=== PATIENT | male | born 1990 | race Caucasian/White ===

== ENCOUNTER 2016-10-03 21:17 | Emergency (ER) | payer OTHER ==
[2016-10-03] MEDS ORDERED: TETRACAINE HCL 0.5% 4 ML BTTL OPHTH ONE (21:30)
[2016-10-03] MEDS ORDERED: GENTAMICIN OPTH SOL 0.3% 5ML BOTTLE OPHTH ONE (21:30)
--- NOTE | 2016-10-03 22:02 | ED.PDOC ---
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 He had been treating his eye for a flash burn when today he noticed a piece of metal next to his iris in his right eye. Timing/Duration: abrupt Severity: mild EENT Location: eye (R) Prearrival Treatment: flushing eyes Improving Factors: nothing Worsening Factors: nothing Associated Symptoms: denies symptoms Allergies/Adverse Reactions: Allergies NO KNOWN ALLERGY Allergy (Verified 10/03/16 22:09) Review of Systems - Review of Systems Constitutional: States: no symptoms reported EENTM: States: see HPI, eye pain. Denies: blurred vision, double vision Respiratory: States: no symptoms reported Cardiology: States: no symptoms reported Skin: States: no symptoms reported Neurological: Denies: headache Past Medical History (General) - Patient Medical History Hx MRSA: Yes - 2015 MRSA Source:: Wound Family Medical History - Family History Mother Family History: Unknown Physical Exam - Physical Exam General Appearance: Alert, Comfortable, No apparent distress, Well Developed, Well Groomed, Well Hydrated, Well Nourished Eye Exam: right other - sm piece of metal @ 3:00 at edge of iris, left normal Cardiovascular/Respiratory: no respiratory distress Neurologic: alert, normal mood/affect, oriented x 3 Skin Exam: normal color, warm/dry Procedures - Eye Procedure Right Alcaine Drops Administered: Yes FB Removal from Eye Procedure: with cottin-tipped swab Antibiotic Oinment/Drps Admin: Gentamycin Progress: Attempted removal of piece of metal. Partial removal but was not able to fully remove foreign body. Departure - Departure Clinical Impression: Foreign body of right eye Qualifiers: Encounter type: initial encounter Qualifier Code: (T15.91XA) Foreign body on external eye, part unspecified, right eye, initial encounter Disposition: Discharge to Home or Self Care Condition: Good Instructions: DI for Corneal Foreign Body-Eye Diet: resume usual diet Activity: increase activity as tolerated Additional Instructions: Elidia Camargo operated by [facility] in [place], [place] Address: [address] [place] [id number] Call Thursday Use Gentimycin eye drops every 4 hours while awake
[2016-10-03 22:09] VITALS: BP 142/81; TEMP 97.8; O2SAT 98
== END 2016-10-03 22:35 | disposition home or self-care (01) ==
LOC: ER 21:17
DX: T15.91XA Foreign body on external eye, part unspecified, right eye, initial encounter (principal); X58.XXXA Exposure to other specified factors, initial encounter; Y99.0 Civilian activity done for income or pay

== ENCOUNTER 2016-10-28 20:10 | Emergency (ER) | payer OTHER ==
[2016-10-28 20:22] VITALS: O2SAT 97
[2016-10-28] MEDS ORDERED: GENTAMICIN OPTH OINT 0.3% 3.5 GM TUBE RIGHT_EYE ONE (20:54)
[2016-10-28] MEDS ORDERED: TETRACAINE HCL 0.5% 4 ML BTTL OPHTH ONE (21:00)
[2016-10-28] MEDS ORDERED: CARBOXYMETHYLCELLULOSE 0.5% 0.4 ML UD OPHTH ONE (21:00)
--- NOTE | 2016-10-28 21:12 | ED.PDOC ---
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 The pain is moderate to severe. He has had no change in vision. Timing/Duration: abrupt Severity: moderate, severe EENT Location: eye (R) Prearrival Treatment: no prearrival treatment Improving Factors: nothing Worsening Factors: other - moving eye, blinking Associated Symptoms: denies symptoms Allergies/Adverse Reactions: Allergies NO KNOWN ALLERGY Allergy (Verified 10/03/16 22:09) Home Medications: Ambulatory Orders Gentamicin Opth Oint 0.5 inch OPHTH BID #1 tube 10/28/16 Review of Systems - Review of Systems Constitutional: States: no symptoms reported EENTM: States: eye pain, tearing Respiratory: States: no symptoms reported Cardiology: States: no symptoms reported Gastrointestinal/Abdominal: States: no symptoms reported Genitourinary: States: no symptoms reported Musculoskeletal: States: no symptoms reported Skin: States: no symptoms reported Neurological: States: headache Endocrine: States: no symptoms reported Hematologic/Lymphatic: States: no symptoms reported All other Systems: Reviewed and Negative Past Medical History (General) - Patient Medical History Hx Seizures: No Hx Stroke: No Hx Dementia: No Hx Asthma: No Hx of COPD: No Hx Cardiac Disorders: No Hx Congestive Heart Failure: No Hx Pacemaker: No Hx Hypertension: No Hx Thyroid Disease: No Hx Diabetes: No Hx Gastroesophageal Reflux: No Hx Renal Disease: No Hx Cancer: No Hx of HIV: No Hx Hepatitis C: No Hx MRSA: Yes - 2016 MRSA Source:: Wound Surgical History: no surgical history - Vaccination History Hx Tetanus, Diphtheria Vaccination: Yes Hx Influenza Vaccination: No Hx Pneumococcal Vaccination: No Immunizations Up to Date: Yes - Social History Hx Tobacco Use: Yes Hx Alcohol Use: No Family Medical History - Family History Mother Family History: Unknown Living Status: Still Living Hx Family Diabetes: Yes Physical Exam - Physical Exam General Appearance: Alert, Obvious distress Eye Exam: right other - Small sub-millimeter piece of metal at 5 o'clock position of iris just iside the iris/conjunctival border, left normal Cardiovascular/Respiratory: no respiratory distress Neurologic: other - Vision normal Skin Exam: normal color Progress - Results/Orders Results/Orders: 10/28/16 20:17 Temperature 97.6 F Pulse Rate [ 98 H Left Radial] Respiratory 18 Rate Blood Pressure 160/93 [Right Arm] O2 Sat by Pulse 97 Oximetry - EKG/XRAY/CT CT Ordered: No Procedures - Eye Procedure Right eye Alcaine Drops Administered: Yes FB Removal from Eye Procedure: with evaristo drill Eye Irrigated w/ Saline (cc's): 5 Cyclogel 2 Drops Administered: No Antibiotic Oinment/Drps Admin: gentamicin ophthal oint Progress: After Alcaine adinistered, I attempted to remove the metal with an 18-gauge needle, however the metal was embedded too deeply. Therefore, I got the evaristo and the metal was removed quickly. Gentamicin ophthalmic ointment was applied to Patient's right eye. Patient tolerated the procedure well. Departure - Departure Clinical Impression: Foreign body, eye Qualifiers: Encounter type: initial encounter Laterality: right Qualified Code(s): T15.91XA - Foreign body on external eye, part unspecified, right eye, initial encounter Corneal injury Qualifiers: Encounter type: initial encounter Laterality: right Qualified Code(s): S05.01XA - Injury of conjunctiva and corneal abrasion without foreign body, right eye, initial encounter Time of Disposition: 21:16 Disposition: Discharge to Home or Self Care Departure Forms: ED Discharge - Pt. Copy, Patient Portal Self Enrollment Instructions: DI for Corneal Foreign Body-Eye, DI for Foreign Body in the Eye Diet: resume usual diet Prescriptions: Gentamicin Opth Oint 0.5 inch OPHTH BID #1 tube Home Medications: Ambulatory Orders Gentamicin Opth Oint 0.5 inch OPHTH BID #1 tube 10/28/16 Additional Instructions: Follow up with dam worker or police liaison in 1-2 days for evaluation of cornea. Follow up in ED for any worsening of pain, redness of eye, or visual changes.
[2016-10-28 21:34] VITALS: BP 146/80; TEMP 98.2
== END 2016-10-28 21:33 | disposition home or self-care (01) ==
LOC: ER 20:10
DX: T15.81XA Foreign body in other and multiple parts of external eye, right eye, initial encounter (principal); Z86.14 Personal history of Methicillin resistant Staphylococcus aureus infection; X58.XXXA Exposure to other specified factors, initial encounter; Y99.0 Civilian activity done for income or pay

== ENCOUNTER 2016-12-17 18:20 | Emergency (ER) | payer SELFPAY ==
[2016-12-17] MEDS ORDERED: SULFA/TRIMETH 800/160 (DS) TAB 1 EA TAB PO ONE (18:35)
--- NOTE | 2016-12-17 18:37 | ED.PDOC ---
History of Present Illness - General Chief Complaint: Skin/Abrasion/Tear Stated Complaint: skin infection L knee Time Seen by Provider: 12/17/16 18:35 Source: patient, RN notes reviewed, Vital Signs reviewed Exam Limitations: no limitations - History of Present Illness Initial Comments: Patient comes in with a red, swollen and painful area on his anterior L knee. Started ~5 days ago as a small, green pustule which he popped, cleaned with alcohol and dressed with antibiotic ointment. He thought it was fine until is started to get more painful, red and swollen today. Timing/Duration: week, getting worse Severity: moderate Location: extremities Improving Factors: nothing Worsening Factors: nothing Associated Symptoms: swelling/mass/lumps Allergies/Adverse Reactions: Allergies NO KNOWN ALLERGY Allergy (Verified 10/03/16 22:09) Home Medications: Ambulatory Orders Gentamicin 0.3% Ophth Oint 0.5 inch OPHTH BID #1 tube 10/28/16 Sulfa/Trimeth 800/160 (Ds) Tab [Bactrim DS Tab] 1 ea PO BID #14 tab 12/17/16 Review of Systems - Review of Systems Constitutional: States: no symptoms reported. Denies: chills, fever Musculoskeletal: States: no symptoms reported Skin: States: see HPI Neurological: States: no symptoms reported All other Systems: No Change from Baseline Past Medical History (General) - Patient Medical History Hx Seizures: No Hx Stroke: No Hx Dementia: No Hx Asthma: No Hx of COPD: No Hx Cardiac Disorders: No Hx Congestive Heart Failure: No Hx Pacemaker: No Hx Hypertension: No Hx Thyroid Disease: No Hx Diabetes: No Hx Gastroesophageal Reflux: No Hx Renal Disease: No Hx Cancer: No Hx of HIV: No Hx Hepatitis C: No Hx MRSA: Yes - 2016 MRSA Source:: Wound - Vaccination History Hx Tetanus, Diphtheria Vaccination: Yes Hx Influenza Vaccination: No Hx Pneumococcal Vaccination: No - Social History Hx Tobacco Use: Yes Hx Alcohol Use: No Family Medical History - Family History Mother Family History: Unknown Living Status: Still Living Hx Family Diabetes: Yes Physical Exam - Physical Exam General Appearance: Alert, Comfortable, No apparent distress, Well Developed, Well Groomed, Well Hydrated, Well Nourished Cardiovascular/Chest: normal peripheral pulses Respiratory: no respiratory distress, no accessory muscle use Extremity: normal range of motion, no pedal edema, inflammation - L anterior, inferior knee, swelling Neurologic: alert, normal mood/affect, oriented x 3 Skin Exam: other - L knee: warm, tender, indurated area with central wound on anterior aspect of knee. No fluctuance or joint tenderness/effusion. Skin Problem Location: lower extremities Skin Character: erythema, tenderness, thickening Departure - Departure Clinical Impression: Cellulitis Qualifiers: Site of cellulitis: extremity Site of cellulitis of extremity: lower extremity Laterality: left Qualified Code(s): L03.116 - Cellulitis of left lower limb Time of Disposition: 18:39 Disposition: Discharge to Home or Self Care Condition: Good Departure Forms: ED Discharge - Pt. Copy, Patient Portal Self Enrollment Instructions: DI for Cellulitis -- Adult Diet: resume usual diet Activity: increase activity as tolerated Prescriptions: Sulfa/Trimeth 800/160 (Ds) Tab [Bactrim DS Tab] 1 ea PO BID #14 tab Home Medications: Ambulatory Orders Gentamicin 0.3% Ophth Oint 0.5 inch OPHTH BID #1 tube 10/28/16 Sulfa/Trimeth 800/160 (Ds) Tab [Bactrim DS Tab] 1 ea PO BID #14 tab 12/17/16
[2016-12-17 18:46] VITALS: BP 153/78; TEMP 99.8; O2SAT 97
== END 2016-12-17 18:55 | disposition home or self-care (01) ==
LOC: ER 18:20
DX: L03.116 Cellulitis of left lower limb (principal); Z86.14 Personal history of Methicillin resistant Staphylococcus aureus infection; Z87.891 Personal history of nicotine dependence

== ENCOUNTER 2017-09-04 12:25 | Emergency (ER) | payer OTHER ==
--- NOTE | 2017-09-04 13:47 | ED.PDOC ---
History of Present Illness - General Chief Complaint: Back Pain or Injury Time Seen by Provider: 09/04/17 12:42 Source: patient Exam Limitations: no limitations - History of Present Illness Initial Comments: Patient presents with back pain since yesterday. He has chronic thoracic and lumbar pain from doing heavy work but yesterday he was pulling his pick ax from the ground and hurt it worse. He had trouble sleeping last night. The pain is lower thoracic and mid-lumbar, constant, radiates down right leg, worse with movement and laying flat, better sitting at an incline. + previous episodes but not this bad. No associated symptoms. No other complaints. Timing/Duration: 24 hours Severity: moderate Improving Factors: rest Worsening Factors: movement Associated Symptoms: denies symptoms Allergies/Adverse Reactions: Allergies NO KNOWN ALLERGY Allergy (Verified 10/03/16 22:09) Home Medications: Ambulatory Orders Gentamicin 0.3% Ophth Oint 0.5 inch OPHTH BID #1 tube 10/28/16 Sulfa/Trimeth 800/160 (Ds) Tab [Bactrim DS Tab] 1 ea PO BID #14 tab 12/17/16 Cyclobenzaprine HCl [Flexeril] 10 mg PO BEDTIME #20 tab 09/04/17 Ketorolac Tromethamine [Toradol Tabs] 10 mg PO Q6HRS #14 tab 09/04/17 Review of Systems - Review of Systems Constitutional: States: no symptoms reported EENTM: States: no symptoms reported Respiratory: States: no symptoms reported Cardiology: States: no symptoms reported Gastrointestinal/Abdominal: States: no symptoms reported Genitourinary: States: no symptoms reported Musculoskeletal: States: see HPI Skin: States: no symptoms reported Neurological: States: no symptoms reported Endocrine: States: no symptoms reported Hematologic/Lymphatic: States: no symptoms reported Past Medical History (General) - Patient Medical History Hx Seizures: No Hx Stroke: No Hx Dementia: No Hx Asthma: No Hx of COPD: No Hx Cardiac Disorders: No Hx Congestive Heart Failure: No Hx Pacemaker: No Hx Hypertension: No Hx Thyroid Disease: No Hx Diabetes: No Hx Gastroesophageal Reflux: No Hx Renal Disease: No Hx Cancer: No Hx of HIV: No Hx Hepatitis C: No Hx MRSA: Yes - 2016 MRSA Source:: Wound - Vaccination History Hx Tetanus, Diphtheria Vaccination: Yes Hx Influenza Vaccination: No Hx Pneumococcal Vaccination: No - Social History Hx Tobacco Use: Yes Hx Alcohol Use: No Family Medical History - Family History Mother Family History: Unknown Living Status: Still Living Hx Family Diabetes: Yes Physical Exam - Physical Exam General Appearance: Alert Respiratory: chest non-tender, lungs clear, normal breath sounds Cardiovascular/Chest: normal peripheral pulses, regular rate, rhythm Gastrointestinal/Abdominal: normal bowel sounds, non tender, soft Back Exam: other - Mildly TTP over lower thoracic and lumbar vertebrae. Straight leg raise positive. Cross-leg raise negative. Torso twisting is painful over right lower back. There is significant pain with flexion of the trunk. Heel walking elicits the shooting pain down the right leg. Extremity: other - see back exam Neurologic: no motor/sensory deficits, alert, normal mood/affect, oriented x 3 Progress - Progress Progress: 09/04/17 13:51 Toradol 30 mg IM x one. Departure - Departure Clinical Impression: Sciatica, Tobacco abuse counseling Disposition: Discharge to Home or Self Care Condition: Good Departure Forms: ED Discharge - Pt. Copy, Patient Portal Self Enrollment Diet: resume usual diet Activity: increase activity as tolerated Referrals: Fiona Camejo NP [Primary Care Provider] - 1-2 Weeks Prescriptions: Ketorolac Tromethamine [Toradol Tabs] 10 mg PO Q6HRS #14 tab Cyclobenzaprine HCl [Flexeril] 10 mg PO BEDTIME #20 tab Home Medications: Ambulatory Orders Gentamicin 0.3% Ophth Oint 0.5 inch OPHTH BID #1 tube 10/28/16 Sulfa/Trimeth 800/160 (Ds) Tab [Bactrim DS Tab] 1 ea PO BID #14 tab 12/17/16 Cyclobenzaprine HCl [Flexeril] 10 mg PO BEDTIME #20 tab 09/04/17 Ketorolac Tromethamine [Toradol Tabs] 10 mg PO Q6HRS #14 tab 09/04/17
[2017-09-04] MEDS ORDERED: KETOROLAC TROMETHAMINE INJ 30 MG/ML VIAL IM ONE (13:54)
[2017-09-04 14:19] VITALS: BP 134/89; TEMP 98.3; O2SAT 97
== END 2017-09-04 14:20 | disposition home or self-care (01) ==
LOC: ER 12:25
DX: M54.30 Sciatica, unspecified side (principal); F17.200 Nicotine dependence, unspecified, uncomplicated